=== PATIENT | female | born 1970 | race Caucasian/White ===

== ENCOUNTER 2019-08-18 20:08 | Emergency (ER) | payer BC, OTHER ==
--- OUTSIDE RECORDS SUMMARY | 2019-08-18 20:16 | XMS REPORT | Continuity of Care Document ---
Author Organization Unknown Address Unknown Phone Unavailable Allergies There is no data. Medications There is no data. Problems There is no data. Procedures There is no data. Results Test Result Range CULTURE, URINE - 09/25/18 17:40 CULTURE, URINE, ROUTINE NRG CMP - 11/24/18 08:49 GLUCOSE 79 mg/dL 65-99 UREA NITROGEN (BUN) 15 mg/dL 7-25 CREATININE 0.76 mg/dL 0.50-1.10 eGFR NON-AFR. PUERTO RICAN 93 mL/min/1.73m2 > OR = 60 eGFR 108 mL/min/1.73m2 > OR = 60 BUN/CREATININE RATIO NOT APPLICABLE (calc) 6-22 SODIUM 143 mmol/L 135-146 POTASSIUM 4.1 mmol/L 3.5-5.3 CHLORIDE 107 mmol/L 98-110 CARBON DIOXIDE 27 mmol/L 20-32 CALCIUM 9.6 mg/dL 8.6-10.2 PROTEIN, TOTAL 6.3 g/dL 6.1-8.1 ALBUMIN 4.2 g/dL 3.6-5.1 GLOBULIN 2.1 g/dL (calc) 1.9-3.7 ALBUMIN/GLOBULIN RATIO 2.0 (calc) 1.0-2. 5 BILIRUBIN, TOTAL 0.6 mg/dL 0.2-1.2 ALKALINE PHOSPHATASE 58 U/L 33-115 AST 26 U/L 10-35 ALT 18 U/L 6-29 CBC - 11/24/18 08:49 WHITE BLOOD CELL COUNT 5.3 Thousand/uL 3 .8-10.8 RED BLOOD CELL COUNT 4.14 Million/uL 3.8 0-5.10 HEMOGLOBIN 12.4 g/dL 11.7-15.5 HEMATOCRIT 37.8 % 35.0-45.0 MCV 91.3 fL 80.0-100.0 MCH 30.0 pg 27.0-33.0 MCHC 32.8 g/dL 32.0-36.0 RDW 13.1 % 11.0-15.0 PLATELET COUNT 298 Thousand/uL 140-400 MPV 10.6 fL 7.5-12.5 ABSOLUTE NEUTROPHILS 3313 cells/uL 1500- 7800 ABSOLUTE LYMPHOCYTES 1420 cells/uL 850-3 900 ABSOLUTE MONOCYTES 392 cells/uL 200-950 ABSOLUTE EOSINOPHILS 143 cells/uL 15-500 ABSOLUTE BASOPHILS 32 cells/uL 0-200 NEUTROPHILS 62.5 % NRG LYMPHOCYTES 26.8 % NRG MONOCYTES 7.4 % NRG EOSINOPHILS 2.7 % NRG BASOPHILS 0.6 % NRG Encounters ACCT No. Visit Date/Time Discharge Status Pt. Type Provider Facility Loc./Unit Complaint [id number] 11/24/2018 08:20:00 11/24/2018 23:59: 59 [id number] 11/24/2018 08:20:00 Document Registration [id number] 09/25/2018 16:20:00 Document Registration
--- OUTSIDE RECORDS SUMMARY | 2019-08-18 20:16 | XMS REPORT ---
Author Author Julia SHEPARD Organization [facility] Address [address] [place] [address] Care Team Providers Care Income Tax Consultant Name Role Phone DREAGLADISSUSANNA Unavailable PROBLEMS Type Condition ICD9-CM Code [id number] Code Onset Dates Condition S tatus SNOMED Code Problem Bipolar 2 disorder F31.81 14 Apr, 2010 Active 86555533 Problem Dysesthesia R20.8 Feb, Active 88423 9003 Problem Acute gastroenteritis K52.9 July, Activ e 71391774 Problem Muscle spasm M62.838 July, Active 4535 2006 Problem Esophagitis determined by biopsy K20.9 Oct, Active 72950703 Problem Right lateral epicondylitis M77.11 July, Active 213604279045142 Problem Acute shoulder pain due to trauma, right M25.511 Feb, Active 658224684 Problem Esophageal reflux K21.9 Oct, Active 329813962 Problem Contracture, fascia, plantar M72.2 Feb, 8 Active 43751430 Problem Nephrolithiasis N20.0 Oct, Active 9 9268375 Problem Osteoarthrosis, unspecified whether generalized or localized, unspecified site M19.90 May, Active 193286062 Problem Wrist tendonitis M77.8 Jan, Active 516474580 Problem Acute pain of right knee M25.561 Feb, Ac tive 029057801 Problem Plantar wart of left foot B07.0 Acti ve [id number] Problem Patellar tendinitis M76.50 Feb, Active 42194354 Problem Carpal tunnel syndrome G56.00 Jan, Acti ve 38260562 Problem Environmental allergies Z91.09 Active 639592563 Problem Mitral valve disorders(424.0) I05.9 Active 29230860 Problem Depressive disorder, not elsewhere classified F32. 9 Active 33403078 Problem Anxiety state F41.1 Aug, Active 198 536228 Problem Urinary incontinence R32 Jan, Active 822993823 Problem Hiatal hernia K44.9 Oct, Active 840 58186 Problem Primary osteoarthritis of right knee M17.11 Active 806757298680758 Problem Primary osteoarthritis of left knee M17.12 Active 255693297074740 ALLERGIES Substance Reaction Event Type Date Status Morphine Sulfate itching Drug Allergy May, Active Levaquin dizziness Drug Allergy May, Active Hydrocodone-Acetaminophen itching Drug Allergy May, Ac tive Zyprexa mental issue Drug Allergy May, Active ENCOUNTERS Encounter Location Date Diagnosis [address] [place] [address] Jan, Allergic rhinitis J30.[address] [address] Nov, Fatigue R53.83 ; Plantar wart of left fo ot B07.0 and Leg cramps R25.[address] [place] [address] Oct, Anxiety state F41.[address] [place] [address] Oct, Acute sinusitis J01.[address] [place] [address] Sep, Urination pain R30.9 ; Urination frequen cy R35.0 ; Flank pain R10.9 ; Hematuria, unspecified type R31.9 and Nausea R11.[address] [place] [address] May, Knee effusion, right M25.461 [facility] [address] [place] [address] Apr, Primary osteoarthritis of ri ght knee M17.[address] [place] [address] Apr, [address] [place] [address] Apr, Fall W19.XXXA ; Knee pain, right M25.561 and Contusion of right knee, initial encounter S80.01XA [facility] [address] [place] [address] Apr, Drug screening, pre-employme nt Z02.1 ; Chronic knee pain M25.569 and Right knee injury, initial encounter S89.91XA [facility] [address] [facility] [place] [address] Mar, [facility] [address] [facility] [place] [address] 08 Mar, 2018 Acute bronchitis, unspecified organism J 20.9 ; Wheeze R06.2 and Acute non- recurrent maxillary sinusitis J01.00 [facility] [address] [facility] [place] [address] Feb, [facility] [address] [address] Feb, [facility] [id number] [place] [address] Feb, [facility] [address] [address] Nov, [facility] [id number] [place] [address] Oct, [facility] [address] [facility] [id number] [place] [id number] Oct, Cracked tooth K03.81 and Encounter for d ental examination Z01.20 IMMUNIZATIONS Vaccine Route Administration Date Status TORADOL (IM) 60 MG/2ML (UP TO 15 MG) IM Intramuscular May 26, 2018 Administered SOCIAL HISTORY Never Assessed REASON FOR VISIT right knee pain, fall yesterday, previous injury, swelling., stuart larios PLAN OF CARE Activity Details Follow Up prn Reason: VITAL SIGNS Height 5ft 9in in 2018-05-26 Weight 164 lbs 2018-05-26 BMI 24.22 kg/m2 2018-05-26 Blood pressure systolic 128 mmHg 2018-05-26 Blood pressure diastolic 74 mmHg 2018-05-26 MEDICATIONS Medication Instructions Dosage Frequency Start Date End Date Duration S eddieus Pantoprazole Sodium 40 MG TAKE 1 TABLET BY MOUTH ONCE DAILY 30 Active BusPIRone HCl 5 MG TAKE 1 TABLET BY MOUTH TWICE DAILY 30 Active Nabumetone 750 MG Orally 2 times a day as directed 12h Active Percocet 5-325 MG Orally every 6 hrs 1 tablet as needed 6h 15 M ar, 2018 07 days Active Zofran ODT 4 MG Orally every 4 hrs 1 tablet on the tong ue and allow to dissolve as needed 4h Active Flonase 50 MCG/ACT Nasally Once a day 1 spray in each nostril 24h 30 day(s) Active Seroquel XR 150 MG Orally Once a day 1 tablet in the evening 24h 30 day(s) Active Oxycodone HCl 5 MG Orally every 4-6 hours as needed 1 tablet as needed Active Cyclobenzaprine HCl 10 MG Orally at bedtime as needed 1 tablet as need ed Active Carafate 1 GM Orally 4 times a day 1 tablet on an empty stomach 6h 30 day(s) Active Albuterol Sulfate 108 (90 Base) MCG/ACT Inhalation every 6 h rs 2 puffs as needed 6h 08 Mar, 2018 Active Xanax 0.5 MG Orally Twice a day 1 tablet 12h Active Vitamin D (Cholecalciferol) 400 UNIT Orally Once a day 2 capsules 24h 30 day(s) Active Protonix 40 MG Orally Once a day 1 tablet 24h 30 day (s) Active RESULTS No Results PROCEDURES Procedure Date Ordered Result Body Site THER/PROPH/DIAG INJ, SC/IM May 26, 2018 TORADOL (IM) 60 MG/2ML (UP TO 15 MG) May 26, 2018 INSTRUCTIONS MEDICATIONS ADMINISTERED No Known Medications MEDICAL (GENERAL) HISTORY Type Description Date Medical History Depression Medical History Mitral valve disorder Medical History Carpal tunnel syndrome Medical History Bipolar 1 disorder Medical History Unspecified osteoarthritis, unspecified site Medical History Anxiety Medical History Hiatal hernia Medical History Esophageal reflux Surgical History hysterectomy Surgical History tubal ligation 2001 Surgical History endometrial ablation Surgical History cholecystectomy Surgical History right knee arthroscopy 1997 Surgical History rotator cuff tear repair right 11/29/17 Hospitalization History surgery
[2019-08-18] MEDS ORDERED: ONDANSETRON 4 MG (ZOFRAN) ORAL DISSOLVE TAB PO STA (20:26)
[2019-08-18 20:29] LABS: BACTERIA,URINE FEW /HPF; BILIRUBIN,URINE NEGATIVE (NEGATIVE); CLARITY,URINE CLEAR; COLOR,URINE YELLOW; GLUCOSE, URINE (UA) NEGATIVE (NEGATIVE); KETONES,URINE NEGATIVE (NEGATIVE); LEUKOCYTE ESTERASE ,URINE NEGATIVE (NEGATIVE); NITRITE,URINE NEGATIVE (NEGATIVE); PH,URINE 7.5 (5-9); PROTEIN,URINE NEGATIVE (NEGATIVE); RBC,URINE 0-2 /HPF
[2019-08-18] MEDS ORDERED: KETOROLAC 60 MG/2 ML VIAL IM ONE (20:30)
[2019-08-18] MEDS ORDERED: fentaNYL INJECTION 100 MCG/2 ML AMP IM PRN (20:30)
--- NOTE | 2019-08-18 20:37 | ED Back Pain ---
General Chief Complaint: Back Problems Stated Complaint: LOWER RIGHT SIDE BACK PAIN Nursing Triage Note: PT complaining of right flank pain Nursing Sepsis Screen: No Definite Risk Source of Information: Patient History of Present Illness Date Seen by Provider: Aug 18, 2019 Time Seen by Provider: 20:15 Initial Comments Patient is a 49-year-old female with history of kidney stones, previous cholecystectomy hysterectomy and bilateral salpingo-oophorectomy presents with acute onset right lower flank pain radiating to right groin. Symptoms began while sleeping 12 hours prior to ED arrival. Pain is described as sharp, severe and is not relieved with position change or movement. Reports nausea and vomiting early. No fevers, chills, sweats, urinary frequency urgency or dysuria. Pain feels similar in nature and severity as previous kidney stones. Patient was evaluated at urgent care 3 hours ago and was instructed that she had a normal urine study performed at that time. Pain is since worsened. No other acute symptoms or complaints. Timing/Duration: 12-24 Hours Severity: Severe Pain/Injury Location: Abdomen, Back Radiation: Other (right pelvis) Modifying Factors: Improves With Movement, Improves With Rest Associated Symptoms: denies symptoms Allergies and Home Medications Allergies Coded Allergies: levofloxacin (Verified Allergy, Unknown, 08/18/19) morphine (Verified Allergy, Unknown, 08/18/19) venlafaxine (Verified Allergy, Unknown, 08/18/19) Patient Home Medication List Home Medication List Reviewed: Yes Review of Systems Constitutional: see HPI EENTM: see HPI Respiratory: see HPI Cardiovascular: see HPI Gastrointestinal: see HPI Genitourinary: see HPI : No Musculoskeletal: back pain Skin: no symptoms reported Psychiatric/Neurological: No Symptoms Reported All Other Systems Reviewed Negative Unless Noted: Yes Past Snlodcs-Djzraz-Gyadis Hx Past Med/Social Hx: Reviewed Nursing Past Med/Soc Hx Patient Social History Alcohol Use: Rarely Uses Recreational Drug Use: No Smoking Status: Current Someday Smoker 2nd Hand Smoke Exposure: No Recent Foreign Travel: No Contact w/Someone Who Travel: No Recent Infectious Disease Expo: No Recent Hopitalizations: No Physical Abuse: No Sexual Abuse: No Past Medical History Surgeries: Yes Gallbladder, Hysterectomy Respiratory: No Cardiac: No Neurological: No Genitourinary: No Gastrointestinal: No Musculoskeletal: No Endocrine: No HEENT: No Cancer: No Psychosocial: No Integumentary: No Blood Disorders: No Physical Exam Vital Signs Vital Signs - First Documented 08/18/19 20:14 Temp 36.7 Pulse 83 Resp 16 B/P (MAP) 117/78 (91) Pulse Ox 97 O2 Delivery Room Air Capillary Refill : Less Than 3 Seconds Height, Weight, BMI Height: '" Weight: lbs. oz. kg; BMI Method: General Appearance: Moderate Distress (secondary to pain) Neck: Full Range of Motion, Normal Inspection, Supple Cardiovascular: Regular Rate, Rhythm Respiratory: Lungs Clear Gastrointestinal: Non Tender, Soft Back: Normal Inspection, No CVA Tenderness, No Vertebral Tenderness Extremity: Normal Capillary Refill Neurologic/Psychiatric: Alert, Oriented x3, No Motor/Sensory Deficits, turner in II- XII Norm as Tested Skin: Warm/Dry Progress/Results/Core Measures Results/Orders Lab Results Laboratory Tests Test 08/18/19 20:15 08/18/19 20:52 Range/Units Urine Color YELLOW Urine Clarity CLEAR Urine pH 7.5 5-9 Urine Specific Oakley 1.015 L 1.016-1.022 Urine Protein NEGATIVE NEGATIVE Urine Glucose (UA) NEGATIVE NEGATIVE Urine Ketones NEGATIVE NEGATIVE Urine Nitrite NEGATIVE NEGATIVE Urine Bilirubin NEGATIVE NEGATIVE Urine Urobilinogen 0.2 < = 1.0 MG/DL Urine Leukocyte Esterase NEGATIVE NEGATIVE Urine RBC (Auto) NEGATIVE NEGATIVE Urine RBC 0-2 /HPF Urine WBC 10-25 H /HPF Urine Squamous Epithelial Cells 5-10 /HPF Urine Crystals NONE /LPF Urine Bacteria FEW H /HPF Urine Casts NONE /LPF Urine Mucus LARGE H /LPF Urine Culture Indicated YES White Blood Count 7.7 4.3-11.0 10^3/uL Red Blood Count 4.29 L 4.35-5.85 10^6/uL Hemoglobin 12.8 11.5-16.0 G/DL Hematocrit 40 35-52 % Mean Corpuscular Volume 93 80-99 FL Mean Corpuscular Hemoglobin 30 25-34 PG Mean Corpuscular Hemoglobin Concent 32 32-36 G/DL Red Cell Distribution Width 13.5 10.0-14.5 % Platelet Count 298 130-400 10^3/uL Mean Platelet Volume 10.1 7.4-10.4 FL Neutrophils (%) (Auto) 63 42-75 % Lymphocytes (%) (Auto) 28 12-44 % Monocytes (%) (Auto) 6 0-12 % Eosinophils (%) (Auto) 3 0-10 % Basophils (%) (Auto) 1 0-10 % Neutrophils # (Auto) 4.9 1.8-7.8 X 10^3 Lymphocytes # (Auto) 2.1 1.0-4.0 X 10^3 Monocytes # (Auto) 0.4 0.0-1.0 X 10^3 Eosinophils # (Auto) 0.2 0.0-0.3 10^3/uL Basophils # (Auto) 0.0 0.0-0.1 10^3/uL My Orders Orders - MANDY MATHEWS DO Ua Culture If Indicated (08/18/19 20:21) Fentanyl Injection (Sublimaze Injection (08/18/19 20:30) Ondansetron Oral Dissolve Tab (Zofran (08/18/19 20:26) Ketorolac Injection (Toradol Injection) (08/18/19 20:30) Urine Culture (08/18/19 20:15) Ct Abdomen/Pelvis Wo (08/18/19 20:27) Cbc With Automated Diff (08/18/19 20:46) Comprehensive Metabolic Panel (08/18/19 20:46) Medications Given in ED Current Medications Medications Dose Ordered Sig/Malinda Route Start Time Stop Time Status Last Admin Dose Admin Fentanyl Citrate 100 mcg Q1H PRN IM 08/18/19 20:30 08/18/19 20:34 100 MCG Ketorolac Tromethamine 60 mg ONCE ONCE IM 08/18/19 20:30 08/18/19 20:31 DC 08/18/19 20:34 60 MG Vital Signs/I&O 08/18/19 20:14 Temp 36.7 Pulse 83 Resp 16 B/P (MAP) 117/78 (91) Pulse Ox 97 O2 Delivery Room Air Blood Pressure Mean: 91 Departure Communication (Admissions) CT abdomen and pelvis obtained. Appendix not identified, findings colitis noted to be present throughout colon. CT images and verbal reviewed and directly with radiologist updated report provided by Dr. Gonzalez at 21:08. Will place the patient on antibiotics and treat supportively with recheck in the ED in 12 hours if symptoms persist or sooner if symptoms worsen. Possibility of early appendicitis was discussed specifically with patient who verbalizes understanding and agrees to drink clear liquids only until next ED follow-up Pseudomonal Risk: Bronchiectasis Impression Primary Impression: Colitis Additional Impression: Right lower quadrant abdominal pain of unknown etiology Disposition: 01 HOME, SELF-CARE Condition: Stable Departure-Patient Inst. Referrals: NO,LOCAL PHYSICIAN (PCP/Family) Primary Care Physician Patient Instructions: Appendicitis in Adults, Colitis Add. Discharge Instructions: You were evaluated emergency department for right flank/lower abdominal pain. Lab work and imaging studies were performed and show evidence of possible colitis (inflammation of the colon). The appendix was not identified and the possibility of early appendicitis has not been excluded. Please take antibiotics as directed and Tylenol for pain. Return to the ED 12 hours reevaluation if pain persists or sooner if symptoms worsen. In the meantime, do not eat and drink clear liquids only. All discharge instructions reviewed with patient and/or family. Voiced understanding. Scripts Amoxicillin/Potassium Clav (Augmentin 875-125 Tablet) 1 Each Tablet 1 EACH PO BID, #14 TAB 0 Refills Prov: MANDY MATHEWS DO 08/18/19 MANDY MATHEWS DO Aug 18, 2019 20:37
--- NOTE | 2019-08-18 20:56 | Diagnostic Imaging Report ---
PROCEDURE: CT abdomen and pelvis without contrast. TECHNIQUE: Multiple contiguous axial images were obtained through the abdomen and pelvis without the use of intravenous contrast. Auto Exposure Controls were utilized during the CT exam to meet ALARA standards for radiation dose reduction. INDICATION: Flank pain. History of stones. FINDINGS: The gallbladder is absent. The liver and bile ducts are normal. The spleen, pancreas and adrenals are normal. There is a 7 cm well-circumscribed low density mass in the superior pole of left kidney which is most consistent with a cyst and could be confirmed with contrasted CT or ultrasound. The right kidney is normal. There is no hydronephrosis on either side. The ureters and bladder are normal. There is no adnexal mass. There is some mild circumferential edema in colon. Some of this may be due to spasm but a colitis is a possibility. No pericolonic edema is seen. No obstruction or perforation is seen. The small bowel is normal. There is no acute bony abnormality. IMPRESSION: Possible colitis. No other abnormality is seen. Dictated by: Dictated on workstation # [id number]
[2019-08-18 20:57] LABS: HEMOGLOBIN 12.8 G/DL (11.5-16.0); MEAN CORPUSCULAR HEMOGLOBIN 30 PG (25-34); WHITE BLOOD COUNT 7.7 10^3/uL (4.3-11.0)
[2019-08-18 20:58] LABS: BASOPHILS % (AUTO) 1 % (0-10); EOSINOPHILS # (AUTO) 0.2 10^3/uL (0.0-0.3); EOSINOPHILS % (AUTO) 3 % (0-10); HEMATOCRIT 40 % (35-52); LYMPHOCYTES # (AUTO) 2.1 X 10^3 (1.0-4.0); LYMPHOCYTES % (AUTO) 28 % (12-44); MEAN CORPUSCULAR HGB CONC 32 G/DL (32-36); MEAN CORPUSCULAR VOLUME 93 FL (80-99); MEAN PLATELET VOLUME 10.1 FL (7.4-10.4); MONOCYTES # (AUTO) 0.4 X 10^3 (0.0-1.0); MONOCYTES % (AUTO) 6 % (0-12); NEUTROPHILS # (AUTO) 4.9 X 10^3 (1.8-7.8); NEUTROPHILS % (AUTO) 63 % (42-75); PLATELET COUNT 298 10^3/uL (130-400); RED CELL DISTRIBUTION WIDTH 13.5 % (10.0-14.5)
[2019-08-18 21:16] LABS: ALANINE AMINOTRANSFERASE 12 U/L (0-55); ALBUMIN 4.4 GM/DL (3.2-4.5); ALKALINE PHOSPHATASE 57 U/L (40-136); BILIRUBIN,TOTAL 0.3 MG/DL (0.1-1.0); BUN/CREATININE RATIO 19; CALCIUM 8.9 MG/DL (8.5-10.1); CARBON DIOXIDE 26 MMOL/L (21-32); CHLORIDE 106 MMOL/L (98-107); CREATININE SERUM 0.78 MG/DL (0.60-1.30); GFR ESTIMATED > 60; GLUCOSE 119 MG/DL (70-105); POTASSIUM 4.3 MMOL/L (3.6-5.0); SODIUM 143 MMOL/L (135-145); TOTAL PROTEIN 6.6 GM/DL (6.4-8.2)
[2019-08-18] MEDS ORDERED: AMOX-358 PO (21:17)
[2019-08-18 21:23] VITALS: BP 116/69
[2019-08-18] MEDS ORDERED: AUGMENTIN 875 MG TAB (AMOXICILLIN/CLAVULANATE) PO SCH (21:30)
== END 2019-08-18 21:26 | disposition home or self-care (01) ==
LOC: ER FS 20:12
DX: K52.9 Noninfective gastroenteritis and colitis, unspecified (principal); F17.200 Nicotine dependence, unspecified, uncomplicated; Z90.49 Acquired absence of other specified parts of digestive tract; Z88.1 Allergy status to other antibiotic agents; Z88.5 Allergy status to narcotic agent; Z88.8 Allergy status to other drugs, medicaments and biological substances
CPT/HCPCS: 36415; 74176; 80053; 81000; 85025; 87088

== ENCOUNTER → 2021-03-30 | Outpatient (CLI) | payer BC ==
[~2021-03-30] MED LIST: AMOX-358 PO
== END | disposition home or self-care (01) ==
LOC: PREOP 06:03
PROVIDERS: ATTEND Surgery
DX: Z01.818 Encounter for other preprocedural examination (principal)

== ENCOUNTER 2021-06-25 07:24 | Outpatient (CLI) | payer BC ==
[~2021-06-25] VITALS: Ht 175 cm; Wt 64.6 kg
[2021-06-25] MEDS ORDERED: QUET200T4 PO (14:52)
[2021-06-25] MEDS ORDERED: PANT40TA2 PO (14:52)
[2021-06-25] MEDS ORDERED: FLUT9.9S NS (14:52)
[2021-06-25] MEDS ORDERED: CHOL400T29 PO (14:52)
[2021-06-25] MEDS ORDERED: LORA10CA PO (14:52)
== END 2021-06-29 07:08 | disposition home or self-care (01) ==
LOC: PREOP 07:24
PROVIDERS: ATTEND Surgery
DX: Z01.818 Encounter for other preprocedural examination (principal)

== ENCOUNTER 2021-07-06 09:47 | Day surgery (SDC) | payer BC ==
[~2021-07-06] VITALS: Ht 175 cm; Wt 64.6 kg
[~2021-07-06 09:47] MED LIST changes: +CHOL400T29 PO; +FLUT9.9S NS; +LORA10CA PO; +PANT40TA2 PO; +QUET200T4 PO
[2021-07-06] MEDS ORDERED: LACTATED RINGERS 1,000 ML IV STA (09:51)
[2021-07-06] MEDS ORDERED: LACTATED RINGERS 1,000 ML IV ONE (09:53)
[2021-07-06 10:00] VITALS: BP 120/89
[2021-07-06] MEDS ORDERED: HURRICAINE EXT TUBE (BENZOCAINE) XX PRN (10:00)
[2021-07-06] MEDS ORDERED: MIDAZOLAM 2 MG/2 ML (VERSED) VIAL ONE (10:26)
[2021-07-06] MEDS ORDERED: PROPOFOL INJECTION 50 ML IV ONE (10:26)
--- NOTE | 2021-07-06 10:31 | Progress Note-Pre Operative ---
Pre-Operative Progress Note H&P Reviewed The H&P was reviewed, patient examined and no changes noted. Time Seen by Provider: 10:30 Date H&P Reviewed: Jul 06, 2021 Time H&P Reviewed: 10:30 Pre-Operative Diagnosis: Hiatal hernia, Chronic gastritis, Screening colono CHELO Osullivan DO Jul 06, 2021 10:31
[2021-07-06 11:05] VITALS: BP 82/53
[2021-07-06 11:10] VITALS: BP 90/56
--- NOTE | 2021-07-06 11:14 | Progress Note-Post Operative ---
Post-Operative Progess Note Surgeon (s)/Low Altitude Air Defense Officer (s) Surgeon CHELO BENOIT DO Low Altitude Air Defense Officer: Sanjeev Castrejon, MSIII Pre-Operative Diagnosis Hiatal hernia, Chronic gastritis, Screening colonoscopy Post-Operative Diagnosis Hypertrophied Pylorus Gastritis hiatal hernia Polyp hemorrhoids Procedure & Operative Findings Date of Procedure 07/06/21 Procedure Performed/Findings EGD with Bx Colon with hot bx PROCEDURE NOTE: After informed consent was obtained, the patient was brought to the endoscopy suite, placed in bed in left lateral decubitus position. She was administered IV sedation by the DUST MIXER who then monitored vitals the entire time, heart rate, blood pressure and pulse ox and the scope was inserted down the mouth through the esophagus into the stomach. On the way down, noted some mild esophagitis, took a picture, pushed into the stomach, pushed past the antrum into the duodenum. Duodenum looked good. Pulled back and noted what looked like some inflammation and possibly hypertrophied pylorus; in fact, the pyloric opening seemed smaller than normal. Did a biopsy of this hypertrophied area in the antrum, then retroflexed the scope and saw very small hiatal hernia. Took a picture of this and then pulled the scope into the GE junction, took another picture of the esophagitis and then did a biopsy of the GE junction. Pushed the scope back into the stomach, suctioned all the air out of the stomach. At this point pulled the scope up the esophagus and out the mouth. Switched camera, switched gloves, went down below, started the colonoscopy. Pushed all the way into about 80 cm to get all the way to cecum, took a picture of the appendiceal orifice, noted the ileocecal valve and then slowly withdrew the scope, insufflating to look circumferentially at the stewart looking the cecum, up the ascending colon. Found a flat polyp and did a hot bx; took it in two bites. Continued to the hepatic flexure, then down the transverse colon, splenic flexure, into the descending colon, down into the sigmoid and finally into the rectum, retroflexed in the rectal vault, saw some minimal internal hemorrhoids and took a picture of this. The patient tolerated the procedure and she recovered in the endoscopy suite. Anesthesia Type IV sedation by DUST MIXER Estimated Blood Loss Estimated blood loss (mL): scant Specimens/Packing Specimens Removed pyloric bx body of stomach bx GE jxn bx asc colon bx CHELO BENOIT DO Jul 06, 2021 11:14
[2021-07-06 11:15] VITALS: BP 92/57
--- NOTE | 2021-07-06 11:15 | Endoscopy Discharge Instruct ---
Endo Procedure/Findings Findings 1.: Gastritis 2.: Hiatal Hernia 3.: Polyp 4.: Internal Hemorrhoids Discharge Instructions - Activity: You might feel a little sleepy until tomorrow. This is due to the medicine you received to relax you. Until tomorrow, you should: NOT drive a car, operate machinery or power tools. NOT drink any alcoholic beverages. NOT make any important decisions or sign importortant papers. Do not return to work until tomorrow, unless otherwise instructed. Resume previous activities tomorrow. Diet: Start by taking liquids. If you tolerate liquids, advance to solid food. 1.: EGD in 1 year 2.: Colonscopy in 5 years Notify Physician - If you experience excessive bleeding, unusual abdominal pain, fever, or chest pain, contact your doctor immediately. CHELO BENOIT DO Jul 06, 2021 11:15
[2021-07-06 11:25] VITALS: BP 102/67
[2021-07-06 11:41] VITALS: BP 108/69
--- NOTE | 2021-07-06 13:28 | Anesthesia-General Post-Op ---
MAC Patient Condition Mental Status/LOC: Same as Preop Cardiovascular: Satisfactory Nausea/Vomiting: Absent Respiratory: Satisfactory Pain: Controlled Complications: Absent Post Op Complications Complications None Follow Up Care/Instructions Patient Instructions None needed. Anesthesiology Discharge Order Discharge Order Patient is doing well, no complaints, stable vital signs, no apparent adverse anesthesia problems. No complications reported per nursing. GER MOLINA CRNA Jul 06, 2021 13:28
== END 2021-07-06 11:48 | disposition home or self-care (01) ==
LOC: ENDO 09:47
PROVIDERS: ATTEND Surgery
DX: Z12.11 Encounter for screening for malignant neoplasm of colon (principal); D12.2 Benign neoplasm of ascending colon; K29.50 Unspecified chronic gastritis without bleeding; K20.90 Esophagitis, unspecified without bleeding; K44.9 Diaphragmatic hernia without obstruction or gangrene; K64.8 Other hemorrhoids; K31.89 Other diseases of stomach and duodenum; F17.210 Nicotine dependence, cigarettes, uncomplicated; Z86.16 Personal history of COVID-19
CPT/HCPCS: 88305

== ENCOUNTER → 2021-07-21 | Outpatient (CLI) | payer BC ==
--- NOTE | 2021-07-21 10:18 | Diagnostic Imaging Report ---
History: Right rib pain. Findings: 3 views of the right ribs with a BB marker in place demonstrate no obvious fracture, osseous lesion or pneumothorax. Impression: Negative right rib series. Dictated by: Dictated on workstation # [id number]
== END ==
LOC: RAD FS 08:28
PROVIDERS: ATTEND Nurse Practitioner Family
DX: M54.6 Pain in thoracic spine (principal)
CPT/HCPCS: 71100

== ENCOUNTER → 2022-03-04 | Outpatient (CLI) | payer OTHER ==
--- NOTE | 2022-03-04 11:06 | Diagnostic Imaging Report ---
EXAMINATION: Right hand radiograph EXAM DATE: 03/04/2022 10:57 AM COMPARISON: None available. HISTORY: Right hand pain TECHNIQUE: 3 views FINDINGS: There is no acute fracture, dislocation, or destructive osseous process. The joint spaces are normal. The soft tissues are normal. IMPRESSION: 1. No acute osseous abnormality. Dictated by: Dictated on workstation # [id number]
== END ==
LOC: RAD FS 10:48
PROVIDERS: ATTEND Nurse Practitioner Family
DX: S69.91XA Unspecified injury of right wrist, hand and finger(s), initial encounter (principal); X58.XXXA Exposure to other specified factors, initial encounter
CPT/HCPCS: 73130